=== PATIENT | female | born 1945 | race Two or more races ===

== ENCOUNTER 2022-04-25 15:14 | Emergency (ER) | payer MEDICARE, OTHER ==
[~2022-04-25] VITALS: Ht 154.9 cm; Wt 81.0 kg
[2022-04-25] MEDS ORDERED: IBUP600T27 PO (19:45)
[2022-04-25] MEDS ORDERED: HYDR-4902 PO (19:45)
[2022-04-25 20:38] VITALS: BP 164/88
== END 2022-04-25 22:39 | disposition home or self-care (01) ==
LOC: ER 15:14
DX: S40.011A Contusion of right shoulder, initial encounter (principal); S70.11XA Contusion of right thigh, initial encounter; S70.01XA Contusion of right hip, initial encounter; Y04.2XXA Assault by strike against or bumped into by another person, initial encounter; Y93.89 Activity, other specified; Y92.89 Other specified places as the place of occurrence of the external cause; Y99.8 Other external cause status
CPT/HCPCS: 73030; 73502